=== PATIENT | female | born 1950 | race Caucasian/White ===

== ENCOUNTER 2017-09-19 05:59 | Emergency (ER) | payer MEDICARE, MEDICAID ==
[2017-09-19] MEDS ORDERED: predniSONE 20 MG Tab PO ONE (06:41)
--- NOTE | 2017-09-19 06:42 | EDM.PDOC ---
<Miguel Ángel Barksdale - Last Filed: 09/19/17 06:42> ED HPI GENERAL MEDICAL PROBLEM - General Chief Complaint: Allergic Reaction Stated Complaint: [facility] Time Seen by Provider: 09/19/17 06:29 Source of Information: Reports: Patient, RN Notes Reviewed History Limitations: Reports: Other (Some inconsistencies in her story) - History of Present Illness INITIAL COMMENTS - FREE TEXT/NARRATIVE: 30 EMS arrival, refused IV prior to arrival and on arrival here as well Chief complaint Possible allergic reaction History of present illness 59-year-old female, who has a history of cerebral aneurysm she reports, has had 2 procedures done and is due to have a third cerebral aneurysm procedure. Gets frequent headaches. Started developing a headache about 3 AM and took 2 naproxen 220 mg OTC dose at home. About an hour later she started developing itching skin red rash over her skin felt like she is having hard time breathing her throat felt closed off her lips were swollen and she felt she couldn't breathe. However she did call EMS and the help line. Was advised to take Benadryl, she took 325 mg tablets of Benadryl. By the time EMS arrived swelling had resolved, the rash resolved. She was having some leg cramps but no longer felt she had any difficulty breathing. She has taken naproxen before she had never had any reaction like this before. Reports some abdominal discomfort, no nausea vomiting diarrhea. Continues to have intermittent cramps in her calves. Bilateral Lower Leg Pain Score (Numeric/FACES): 9 - Related Data Allergies Allergy/AdvReac Type Severity Reaction Status Date / Time codeine Allergy Difficulty Verified 09/19/17 06:19 Breathing morphine Allergy Cannot Verified 09/19/17 06:19 Remember risperidone [From Risperdal] Allergy Rash Verified 09/19/17 06:19 trazodone Allergy Cannot Verified 09/19/17 06:19 Remember Home Meds: Home Meds Acetaminophen 1,000 mg PO Q6H PRN 09/19/17 [History] Cyclobenzaprine [Flexeril] 10 mg PO TID PRN 09/19/17 [History] Lisinopril [Prinivil] 10 mg PO DAILY 09/19/17 [History] Mirtazapine [Remeron] 15 mg PO BEDTIME PRN 09/19/17 [History] Nabumetone [Relafen] 500 mg PO BID 09/19/17 [History] Omeprazole 40 mg PO DAILY 09/19/17 [History] Sucralfate [Carafate] 1 gm PO QID 09/19/17 [History] atorvaSTATin [Lipitor] 80 mg PO BEDTIME 09/19/17 [History] Past Medical History Neurological History: Reports: Other (See Below) Other Neuro History: aneurysm in the brain - Infectious Disease History Infectious Disease History: Reports: Chicken Pox Social & Family History - Tobacco Use Smoking Status *Q: Current Every Day Smoker Years of Tobacco use: 30 Packs/Tins Daily: 0.5 - Caffeine Use Caffeine Use: Reports: Coffee, Tea - Recreational Drug Use Recreational Drug Use: No ED ROS ALLERGIC REACTION - Review of Systems Review Of Systems: See Below Constitutional: Reports: Malaise. Denies: Fever, Chills HEENT: Reports: Other (Throat swelling, felt as if her throat was closing off). Denies: Ear Pain, Eye Pain, Rhinitis Respiratory: Reports: Shortness of Breath. Denies: Wheezing, Cough Cardiovascular: Reports: Lightheadedness. Denies: Chest Pain, Syncope GI/Abdominal: Denies: Abdominal Pain, Nausea, Vomiting : Reports: No Symptoms Musculoskeletal: Reports: No Symptoms Skin: Reports: Pruritis, Rash Neurological: Reports: No Symptoms Immunologic: Reports: Other (Possible allergy) ED EXAM GENERAL NO PERIP PULSE - Physical Exam Exam: See Below Exam Limited By: No Limitations General Appearance: Alert, Anxious, Mild Distress, Other (Mild elevation of pulse otherwise vital signs normal, no difficulty speaking or breathing, voice is normal) Eye Exam: Bilateral Eye: EOMI, Normal Inspection Ears: Normal External Exam, Normal Canal, Normal TMs Nose: Normal Inspection, Normal Mucosa Throat/Mouth: Normal Inspection, Normal Lips, Normal Oropharynx, Normal Voice Head: Atraumatic Neck: Normal Inspection, Full Range of Motion. No: Lymphadenopathy (R), Lymphadenopathy (L) Respiratory/Chest: No Respiratory Distress, Lungs Clear, Normal Breath Sounds, No Accessory Muscle Use (Y Taj tying our) Cardiovascular: Normal Peripheral Pulses (Mild tachycardia rate 106), Regular Rate, Rhythm GI/Abdominal: Normal Bowel Sounds, Soft, Non-Tender, No Distention Back Exam: Normal Inspection Extremities: Normal Inspection, No Pedal Edema Neurological: Alert, Oriented, No Motor/Sensory Deficits Psychiatric: Anxious Skin Exam: Warm, Dry, Intact, Normal Color, No Rash Lymphatic: No Adenopathy Comments: 67-year-old female who presents with symptoms that are suggestive of allergic reaction but her symptoms have completely resolved apart from some cramps in her calves. Difficult to imagine that symptoms could so completely resolve with 75 mg of Benadryl taken within the last hour. Prednisone 40 mg by mouth Observation in emergency Transferred to care of Dr. Byers pending disposition Course - Vital Signs Last Recorded V/S: Last Vital Signs Temp 95.7 F 09/19/17 06:13 Pulse 82 09/19/17 09:00 Resp 16 09/19/17 09:00 BP 104/53 L 09/19/17 09:00 Pulse Ox 95 09/19/17 09:00 - Orders/Labs/Meds Meds: Medications Discontinued Medications Generic Name Dose Route Start Last Admin Trade Name Cate PRN Reason Stop Dose Admin Prednisone 40 mg 09/19/17 06:41 09/19/17 06:45 Prednisone PO 09/19/17 06:42 40 mg ONETIME ONE Administration Departure - Departure Disposition: Home, Self-Care 01 Clinical Impression: Allergic reaction caused by a drug Qualifiers: Encounter type: initial encounter Qualified Code(s): T78.40XA - Allergy, unspecified, initial encounter - Discharge Information Referrals: PCP,None [Primary Care Provider] - Forms: ED Department Discharge Additional Instructions: Please followup with your primary care provider in 3-5 days if not better, please call return to the emergency department with worsening of symptoms. <Alonzo Byers - Last Filed: 09/19/17 11:57> Departure - Departure Time of Disposition: 11:56 Condition: Good - Assessment/Plan Plan: Assessment Acuity = acute Site and laterality = allergic reaction to medication Etiology = possibly naproxen Manifestations = none Location of injury = Home Lab values = none Plan Took over care from Dr. Barksdale at 7 AM, patient remained asymptomatic during course the morning no adverse reactions were noted discharged around noon follow -up with primary care as needed, no other intervention provided This note was dictated using [employer] voice recognition software please call with any questions on syntax or june.
== END 2017-09-19 12:53 | disposition home or self-care (01) ==
LOC: JP.ED 05:59
DX: L29.9 Pruritus, unspecified (principal); T39.315A Adverse effect of propionic acid derivatives, initial encounter; F17.210 Nicotine dependence, cigarettes, uncomplicated; Z79.899 Other long term (current) drug therapy; Z88.5 Allergy status to narcotic agent; Z88.8 Allergy status to other drugs, medicaments and biological substances
CPT/HCPCS: 99283; A9270